=== PATIENT | female | born 1950 | race Hispanic/Latino ===

== ENCOUNTER 2019-03-14 10:00 | Outpatient (RCR) | payer MEDICARE | END 2019-03-17 | LOC: OT 10:00 | PROVIDERS: ATTEND Orthopaedic Surgery | DX: S52.135D Nondisplaced fracture of neck of left radius, subsequent encounter for closed fracture with routine healing (principal) ==

== ENCOUNTER 2019-04-04 14:00 | Outpatient (RCR) | payer MEDICARE | END 2019-04-17 | LOC: OT 14:00 | PROVIDERS: ATTEND Orthopaedic Surgery | DX: S52.135D Nondisplaced fracture of neck of left radius, subsequent encounter for closed fracture with routine healing (principal) ==